=== PATIENT | female | born 2000 | race Caucasian/White ===

== ENCOUNTER 2018-02-08 07:13 | Emergency (ER) | payer BC ==
[2018-02-08 07:38] VITALS: BP 110/72
--- NOTE | 2018-02-08 07:51 | UC ---
Throat Pain/Nasal Varun HPI - HPI Summary HPI Summary: sore throat x 5 days , pain is sever, worse in the morning , body aches, no fever, + chills, no cough, no runny nose - History of Current Complaint Chief Complaint: UCRespiratory Stated Complaint: SORE THROAT Time Seen by Provider: 02/08/18 07:39 Hx Obtained From: Patient Hx Last Menstrual Period: 02/02/18 Onset/Duration: Gradual Onset, Lasting Days - 5, Still Present Severity: Moderate Pain Intensity: 6 Cough: None Associated Signs & Symptoms: Negative: Dysphagia, FB Sensation, Drooling, Wheezing, Hoarseness, Sinus Discomfort, Nasal Discharge, Fever, Vomiting, Rash - Allergies/Home Medications Allergies/Adverse Reactions: Allergies Allergy/AdvReac Type Severity Reaction Status Date / Time No Known Allergies Allergy Verified 02/08/18 07:33 Home Medications: Home Medications Ibuprofen TAB* [Motrin TAB* 400 MG] 400 mg PO Q6H PRN 02/08/18 [History Confirmed 02/08/18] Omeprazole CAP* [Prilosec CAP* 20 MG] 20 mg PO DAILY 02/08/18 [History Confirmed 02/08/18] PMH/Surg Hx/FS Hx/Imm Hx Previously Healthy: Yes - Surgical History Surgical History: Yes Surgery Procedure, Year, and Place: right breast fibroid removal 2014 - Family History Known Family History: Negative: Diabetes - Social History Alcohol Use: None Substance Use Type: None Smoking Status (MU): Never Smoked Tobacco Review of Systems Constitutional: Chills, Fatigue Skin: Negative Eyes: Negative ENT: Sore Throat Respiratory: Negative Cardiovascular: Negative Gastrointestinal: Negative Genitourinary: Negative Is Patient Immunocompromised?: No All Other Systems Reviewed And Are Negative: Yes Physical Exam Triage Information Reviewed: Yes Appearance: Well-Appearing, No Pain Distress Vital Signs: Initial Vital Signs Temp 98.4 F 02/08/18 07:29 Pulse 75 02/08/18 07:29 Resp 16 02/08/18 07:29 BP 110/72 02/08/18 07:29 Pulse Ox 100 02/08/18 07:29 Vital Signs Reviewed: Yes Eyes: Positive: Conjunctiva Clear ENT: Positive: Normal ENT inspection, Hearing grossly normal, Pharyngeal erythema, TMs normal. Negative: Nasal congestion, Nasal drainage Neck: Positive: Supple, Tenderness @, Enlarged Nodes @ Respiratory: Positive: Chest non-tender, Lungs clear, Normal breath sounds, No respiratory distress Cardiovascular: Positive: RRR, No Murmur, Pulses Normal Abdomen Description: Positive: Nontender, No Organomegaly, Soft Bowel Sounds: Positive: Present Throat Pain/Nasal Course/Dx - Differential Dx/Diagnosis Provider Diagnoses: Pharyngitis Discharge - Sign-Out/Discharge Documenting (check all that apply): Patient Departure All imaging exams completed and their final reports reviewed: No Studies - Discharge Plan Condition: Stable Disposition: HOME Prescriptions: Amoxicillin PO (*) [Amoxicillin 875 MG (*)] 875 mg PO BID #20 tab Patient Education Materials: Pharyngitis (ED) Referrals: No Primary Care Phys,NOPCP [Primary Care Provider] - If Needed - Billing Disposition and Condition Condition: STABLE Disposition: Home
== END 2018-02-08 08:23 | disposition home or self-care (01) ==
LOC: UCCORT 07:13
DX: J02.9 Acute pharyngitis, unspecified (principal)
CPT/HCPCS: 99201; G0463

== ENCOUNTER 2018-04-19 09:04 | Emergency (ER) | payer BC ==
[2018-04-19 09:44] VITALS: BP 117/64
--- NOTE | 2018-04-19 10:15 | UC ---
Throat Pain/Nasal Varun HPI - HPI Summary HPI Summary: sore throat x 3 day no cough, no nasal congestion , no fever, no chills + body aches - History of Current Complaint Chief Complaint: UCRespiratory Stated Complaint: SORE THROAT Time Seen by Provider: 04/19/18 10:04 Hx Obtained From: Patient Hx Last Menstrual Period: 03/24 Onset/Duration: Gradual Onset, Lasting Days - 3, Still Present Severity: Severe Pain Intensity: 0 Cough: None Associated Signs & Symptoms: Negative: Dysphagia, FB Sensation, Drooling, Wheezing, Hoarseness, Sinus Discomfort, Nasal Discharge, Fever, Vomiting, Rash - Allergies/Home Medications Allergies/Adverse Reactions: Allergies Allergy/AdvReac Type Severity Reaction Status Date / Time No Known Allergies Allergy Verified 04/19/18 09:45 Home Medications: Home Medications O C 1 tab PO QPM 04/19/18 [History Confirmed 04/19/18] PMH/Surg Hx/FS Hx/Imm Hx Previously Healthy: Yes - Surgical History Surgical History: Yes Surgery Procedure, Year, and Place: right breast fibroid removal 2014 - Family History Known Family History: Negative: Diabetes - Social History Alcohol Use: None Substance Use Type: None Smoking Status (MU): Never Smoked Tobacco Review of Systems All Other Systems Reviewed And Are Negative: Yes Constitutional: Positive: Negative Skin: Positive: Negative Eyes: Positive: Negative ENT: Positive: Sore Throat Respiratory: Positive: Negative Cardiovascular: Positive: Negative Is Patient Immunocompromised?: No Physical Exam Triage Information Reviewed: Yes Appearance: Well-Appearing, No Pain Distress, Well-Nourished Vital Signs: Initial Vital Signs Temp 99.1 F 04/19/18 09:41 Pulse 101 04/19/18 09:41 Resp 16 04/19/18 09:41 BP 117/64 04/19/18 09:41 Pulse Ox 99 04/19/18 09:41 Vital Signs Reviewed: Yes Eye Exam: Normal Eyes: Positive: Conjunctiva Clear ENT: Positive: Normal ENT inspection, Hearing grossly normal, Pharyngeal erythema. Negative: Nasal congestion, Nasal drainage Neck: Positive: Supple, Nontender, No Lymphadenopathy Respiratory: Positive: Chest non-tender, Lungs clear, Normal breath sounds, No respiratory distress Cardiovascular: Positive: RRR, No Murmur, Pulses Normal Skin Exam: Normal Throat Pain/Nasal Course/Dx - Differential Dx/Diagnosis Provider Diagnosis: Viral pharyngitis Discharge - Sign-Out/Discharge Documenting (check all that apply): Patient Departure All imaging exams completed and their final reports reviewed: No Studies - Discharge Plan Condition: Stable Disposition: HOME Patient Education Materials: Pharyngitis (ED) Referrals: No Primary Care Phys,NOPCP [Primary Care Provider] - If Needed - Billing Disposition and Condition Condition: STABLE Disposition: Home
== END 2018-04-19 10:20 | disposition home or self-care (01) ==
LOC: UCCORT 09:04
DX: J02.8 Acute pharyngitis due to other specified organisms (principal)
CPT/HCPCS: 87651; 99211; G0463

== ENCOUNTER 2018-09-08 13:35 | Emergency (ER) | payer BC ==
[2018-09-08 14:11] VITALS: BP 127/63
--- NOTE | 2018-09-08 14:40 | UC ---
Throat Pain/Nasal Varun HPI - HPI Summary HPI Summary: Pt presents to with 4 day of progressive sore throat, painful swallowing and left ear pain. Pt state able eat and drink (bagel, granola bar) today. HAs been taking Motrin - last dose 9am. Pt states since last evening has progressive pressure and popping in left ear. Pt denies fevers, + chills. No n/v/d. No rash no sick contacts. Pt is a [employer]. Medications reviewed Not - History of Current Complaint Chief Complaint: UCRespiratory Stated Complaint: ST Time Seen by Provider: 09/08/18 14:39 Hx Obtained From: Patient Hx Last Menstrual Period: 08/13/18 Onset/Duration: Gradual Onset Pain Intensity: 7 - Allergies/Home Medications Allergies/Adverse Reactions: Allergies Allergy/AdvReac Type Severity Reaction Status Date / Time No Known Allergies Allergy Verified 09/08/18 14:07 Home Medications: Home Medications Bcp 1 tab DAILY 09/08/18 [History Confirmed 09/08/18] PMH/Surg Hx/FS Hx/Imm Hx Previously Healthy: Yes - Surgical History Surgical History: Yes Surgery Procedure, Year, and Place: right breast fibroid removal 2014 - Family History Known Family History: Positive: Non-Contributory Negative: Diabetes - Social History Occupation: Student Lives: Dormitory/Roommates Alcohol Use: None Substance Use Type: None Smoking Status (MU): Never Smoked Tobacco Review of Systems All Other Systems Reviewed And Are Negative: Yes Constitutional: Positive: Chills Skin: Positive: Negative Eyes: Positive: Negative ENT: Positive: Sore Throat, Ear Ache Respiratory: Positive: Negative Cardiovascular: Positive: Negative Gastrointestinal: Positive: Negative Is Patient Immunocompromised?: No Physical Exam - Summary Physical Exam Summary: Vital Signs Reviewed: Yes A+Ox3, no distress Eyes: Conjunctiva Clear, DIANA. EOM intact and full ENT: Hearing grossly normal left ear +fluid, no erythema no buldge turbinates inflammed, boggy + PND, mmoist, uvula midline, no exudate, + erythema Neck: Positive: Supple, no lymphadeopathy Respiratory: Positive: No respiratory distress, No accessory muscle use + CTA throughout no w/r Cardiovascular: RRR nl s1, s2 no m/r CBT <2 sec abd soft + BS nt/nd no guarding, no distension Musculoskeletal Exam: SCHROEDER x 4 without difficulty Strength Intact, ROM Intact Neurological: Positive: Alert, + sensation throughout Psychological: Positive: Normal Response To Family Skin: Positive: no rash, no ecchymosis Triage Information Reviewed: Yes Vital Signs: Initial Vital Signs Temp 97.9 F 09/08/18 14:08 Pulse 70 09/08/18 14:08 Resp 16 09/08/18 14:08 BP 127/63 09/08/18 14:08 Pulse Ox 100 09/08/18 14:08 Throat Pain/Nasal Course/Dx - Course Course Of Treatment: Patient presents to urgent care reporting 5 days progressive sore throat and 24 hours of left ear pain. Patient without any fevers but did have chills. Patient state Mitroflow relief. Patient able to eat and drink without drooling. Vital signs are stable. Patient noted to have fluid in her left ear but does not appear acutely infected. Patient also with erythema of her posterior pharynx without any exudate but moderate postnasal drip. Will check a strep. This negative recommend patient take a decongestant as well as Flonase. Gargle spit warm salt water. Motrin/Tylenol. Will prescribe prescription for amoxicillin to be filled on Wednesday patient's symptoms progress or worsen. Patient is a question what finals next week. At that time patient will be 7 days symptomatic with progressive pain. Patient states understanding agreement with plan. Patient declined offer to talk to parents. - Differential Dx/Diagnosis Provider Diagnosis: Pharyngitis, Serous otitis media Discharge - Sign-Out/Discharge Documenting (check all that apply): Patient Departure All imaging exams completed and their final reports reviewed: No Studies - Discharge Plan Condition: Stable Disposition: HOME Prescriptions: Amoxicillin PO (*) [Amoxicillin 500 MG CAP*] 500 mg PO Q12H #20 cap Fluticasone NASAL SPRAY 50MCG* [Flonase NASAL SPRAY 50MCG*] 2 spray BOTH NARES DAILY #1 btl Patient Education Materials: Pharyngitis (ED), Serous Otitis Media (ED) Referrals: [facility] [Outside] No Primary Care Phys,NOPCP [Primary Care Provider] - Additional Instructions: - Okay to alternate ibuprofen (Advil, Motrin) 600mg and Tylenol every 3 hours for pain. Take with food. Do NOT take for more than 4-5 days - Okay to gargle and spit warm salt water every 4 hours as needed for pain - Stay well hydrated - frequent sips of cold fluids will be soothing to your throat (popsicles, jello, ice cream, ice water). Avoid excess caffeine until your symptoms have resolved. -Throat infections are spread by oral secretions - do not share eating or drinking utensils until you symptoms are resolved. Clean items that may get your secretions such as cell phones, ipads, computer mouse, television remotes. Once you start to feel better, change your toothbrush and your pillowcase. - use nasal spray as prescribed - humidify the air in the room where you sleep - boil water, run a hot steam shower, vaporizer, cups of water by heat register - Okay to take over the counter medication such as Claritin-D, Gin-D, Zyrtec -D - If your symptoms persist or worsen over the next 48 hours, okay to start antibiotics a prescribed - Contact your doctor to arrange a follow-up appointment as needed - Billing Disposition and Condition Condition: STABLE Disposition: Home
== END 2018-09-08 15:18 | disposition home or self-care (01) ==
LOC: UCCORT 13:35
DX: J02.9 Acute pharyngitis, unspecified (principal); H65.92 Unspecified nonsuppurative otitis media, left ear; H92.02 Otalgia, left ear
CPT/HCPCS: 87651; 99212; G0463